=== PATIENT | female | born 1980 | race Caucasian/White ===

== ENCOUNTER 2017-05-18 01:43 | Inpatient (IN) | payer OTHER ==
[~2017-05-18] VITALS: Ht 157.5 cm; Wt 87.3 kg
[2017-05-18] VITALS (21 sets, daily range): BP systolic 96–131; BP diastolic 52–81; PULSE 72–98; TEMP 97.4–98.1
[2017-05-18 07:05] LABS: BASO % 0.2 % (0.0-2.0); EOS # 0.1 (0.0-0.7); EOS % 0.9 % (0-4.0); GRAN # 9.8 (1.4-6.5); GRAN % 77.3 % (42.2-75.2); LYMPH # 1.9 (1.2-3.4); LYMPH % 15.1 % (20.0-51.0); MEAN CELL VOLUME 88 fl (80.0-100.0); MEAN CORPUSCULAR HEMOGLOBIN 30 pg (27.0-31.0); MEAN CORPUSCULAR HGB CONC 34 g/dl (33.0-37.0); MEAN PLATELET VOLUME 11.2 fl (7.4-10.4); MONO # 0.8 (0.1-0.6); MONO % 6.1 % (1.7-9.3); PLATELET COUNT 340 K/mm3 (130-400); RED BLOOD COUNT 4.07 M/mm3 (4.10-5.30); WHITE BLOOD COUNT 12.6 K/mm3 (4.8-10.8)
[2017-05-18 07:06] LABS: HEMATOCRIT 35.8 % (37.0-47.0)
[2017-05-19 06:38] LABS: BASO % 0.3 % (0.0-2.0); EOS # 0.2 (0.0-0.7); EOS % 1.6 % (0-4.0); GRAN # 9.7 (1.4-6.5); GRAN % 76.4 % (42.2-75.2); LYMPH # 1.8 (1.2-3.4); MEAN CELL VOLUME 90 fl (80.0-100.0); MEAN CORPUSCULAR HGB CONC 33 g/dl (33.0-37.0); MEAN PLATELET VOLUME 10.8 fl (7.4-10.4); MONO # 0.9 (0.1-0.6); MONO % 7.2 % (1.7-9.3); PLATELET COUNT 310 K/mm3 (130-400); RED BLOOD COUNT 3.55 M/mm3 (4.10-5.30); WHITE BLOOD COUNT 12.7 K/mm3 (4.8-10.8)
[2017-05-19 06:52] LABS: HEMATOCRIT 31.9 % (37.0-47.0); HEMOGLOBIN 10.4 g/dl (12.5-16.0); MEAN CORPUSCULAR HEMOGLOBIN 29 pg (27.0-31.0)
[2017-05-19 08:33] VITALS: BP 127/78; PULSE 82; TEMP 97.6
[2017-05-19] MEDS ORDERED: IBU600 MG PO (09:56)
[2017-05-19] MEDS ORDERED: PERCOCET 325 MG1 TA2 PO (09:56)
[2017-05-19 16:30] VITALS: BP 121/74; PULSE 82; TEMP 97.9
[2017-05-19 21:00] VITALS: BP 117/70; PULSE 83; TEMP 97.9
[2017-05-20 07:33] VITALS: BP 94/64; PULSE 82; TEMP 98.4
[2017-05-20 16:18] VITALS: BP 96/48; PULSE 74; TEMP 98.1
[2017-05-20 21:50] VITALS: BP 116/74; PULSE 86; TEMP 97.9
[2017-05-21 07:42] VITALS: BP 111/65; PULSE 81; TEMP 98.1
== END 2017-05-21 14:15 | disposition home or self-care (01) | DRG 766 ==
LOC: LDRO 01:43 → LDR 03:35 → OB 07:15
PROVIDERS: Obstetrics & Gynecology; Student in an Organized Health Care Education/Training Program
PROC: 10D00Z1 Extraction of Products of Conception, Low, Open Approach (ICD-10-PCS; principal; 2017-05-18)
DX: O34.211 Maternal care for low transverse scar from previous cesarean delivery (principal); N85.8 Other specified noninflammatory disorders of uterus; O69.81X0 Labor and delivery complicated by cord around neck, without compression, not applicable or unspecified; Z3A.39 39 weeks gestation of pregnancy; Z37.0 Single live birth; Z88.0 Allergy status to penicillin
CPT/HCPCS: J0690; J1885; J2270; J2405; J2590; J7120